=== PATIENT | female | born 1990 | race Caucasian/White ===

== ENCOUNTER 2017-10-02 14:03 | Emergency (ER) | payer OTHER ==
[2017-10-02] MEDS ORDERED: NS 0.9% 1000 ML* 1,000 ML IV ONE (15:15)
[2017-10-02 15:39] LABS: ABS Basophils 0 10^3/ul (0-0.2); ABS Eosinophils 0 10^3/ul (0-0.6); ABS Lymphocytes 1.2 10^3/ul (1.0-4.8); ABS Monocytes 0.3 10^3/ul (0-0.8); ABS Neutrophils 4.4 10^3/ul (1.5-7.7); ABS Nucleated RBC 0 10^3/ul; Eosinophil % 0.2 % (0-6); Hematocrit 40 % (35-47); Hemoglobin 13.5 g/dl (12.0-16.0); Lymphocyte % 20.9 % (25-47); Mean Corpuscular HGB Conc 34 g/dl (31-36); Mean Corpuscular Hemoglobin 30 pg (27-31); Mean Corpuscular Volume 89 fL (80-97); Mean Platelet Volume 7.1 um3 (7.4-10.4); Nucleated Red Blood Cells % 0.2; Platelet Count 305 10^3/ul (150-450); Red Blood Count 4.49 10^6/ul (4.00-5.40); Red Cell Distribution Width 14 % (10.5-15)
[2017-10-02 15:41] LABS: Urine Appearance Clear; Urine Blood Negative (Negative); Urine Color Straw; Urine Ketones Negative (Negative); Urine Protein Negative (Negative); Urine Specific Gravity 1.003 (1.010-1.030); Urine Urobilinogen Negative (Negative)
--- NOTE | 2017-10-02 16:11 | ED ---
Abdominal Pain/Female - HPI Summary HPI Summary: Patient presents with right upper quadrant pain since Wednesday of this week. She has noticed this pain after eating or drinking fatty foods but has not had pain when eating nonfatty foods. She denies nausea, vomiting, diarrhea. Admits to a history of "indigestion" with eating certain foods and sometimes feels that she can't lay down right after she eats she feels she may vomit. She 's taken Tums in the past with relief. No previous history of gallbladder dysfunction. She went to [address] [place] [id number] earlier this week and had liver enzymes assessed per patient these were normal. She was told if her pain worsens to follow up the emergency department which is why she is here today. She reports she developed pain shortly after eating chocolate next at a movie theater. Currently her pain is 1-2 out of 10 and she denies nausea. No trauma to the area. Has not tried anything for pain prior to arrival (i.e. Tums). Gets tension CALLAWAY's a couple of times a month for which she treats with ibuprofen. Doesn't eat breakfast and admits to drinking coffee, soda and ETOH occasionally. Denies smoking. Denies dysuria, urinary urgency, urinary frequency, hematuria, vaginal discharge , vaginal urination. Last was her period one month ago. Cycles are regular and she does not suspect she is . - History of Current Complaint Chief Complaint: EDAbdPain Stated Complaint: ABD PAIN Time Seen by Provider: 10/02/17 15:20 Hx Obtained From: Patient, Family/Blind Teacher - Sister, father Pain Intensity: 3 Allergies/Adverse Reactions: Allergies Allergy/AdvReac Type Severity Reaction Status Date / Time almond Allergy Swelling Verified 10/02/17 14:10 Of Face,Lips,& Throat Echinacea Allergy Swelling Verified 10/02/17 14:10 Of Face,Lips,& Throat Home Medications: Home Medications Ibuprofen 200 mg PO Q6H 10/02/17 [History Confirmed 10/02/17] PMH/Surg Hx/FS Hx/Imm Hx Previously Healthy: Yes Endocrine/Hematology History: Denies: Hx Diabetes, Hx Thyroid Disease Cardiovascular History: Denies: Hx Hypertension Respiratory History: Denies: Hx Asthma, Hx Chronic Obstructive Pulmonary Disease (COPD) GI History: Reports: Hx Gastroesophageal Reflux Disease - self reported "indigestion" intermittently Denies: Hx Crohn's Disease, Hx Diverticulosis, Hx Gall Bladder Disease, Hx Gastrointestinal Bleed, Hx Ulcer History: Denies: Hx Kidney Infection, Hx Kidney Stones, Other Problems/Disorders Psychiatric History: Reports: Hx Anxiety - self reported Infectious Disease History: No Infectious Disease History: Denies: Hx Hepatitis, Hx Human Immunodeficiency Virus (HIV), Traveled Outside the [place] in Last 30 Days - Family History Known Family History: Positive: Other - GERD - Social History Lives: With Family Alcohol Use: None Hx Substance Use: No Substance Use Type: Reports: None Hx Tobacco Use: No Smoking Status (MU): Never Smoked Tobacco Review of Systems Constitutional: Negative Negative: Fever, Chills, Fatigue Eyes: Negative ENT: Negative Negative: Sore Throat Cardiovascular: Negative Negative: Chest Pain Respiratory: Negative Negative: Shortness Of Breath, Cough Positive: Abdominal Pain. Negative: Vomiting, Diarrhea, Nausea Genitourinary: Negative Musculoskeletal: Negative Skin: Negative Neurological: Negative Psychological: Normal All Other Systems Reviewed And Are Negative: Yes Physical Exam Triage Information Reviewed: Yes Vital Signs On Initial Exam: Initial Vitals Temp Pulse Resp BP Pulse Ox 99.0 F 94 16 122/73 96 10/02/17 14:06 10/02/17 14:06 10/02/17 14:06 10/02/17 14:06 10/02/17 14:06 Vital Signs Reviewed: Yes Appearance: Positive: Well-Appearing, No Pain Distress - appears concerned/ anxious, Well-Nourished Skin: Positive: Warm, Skin Color Reflects Adequate Perfusion, Dry Head/Face: Positive: Normal Head/Face Inspection Eyes: Positive: Normal, EOMI, Conjunctiva Clear - anicteric sclera ENT: Positive: Normal ENT inspection, Hearing grossly normal, Pharynx normal - mucosa moist Neck: Positive: Supple, Nontender, No Lymphadenopathy Respiratory/Lung Sounds: Positive: Clear to Auscultation, Breath Sounds Present. Negative: Rales, Rhonchi, Wheezes Cardiovascular: Positive: Normal, RRR, S1, S2 Abdomen Description: Positive: No Organomegaly, Soft, Other: - + Tipton's sign. Negative: CVA Tenderness (R), CVA Tenderness (L), Distended, Guarding Bowel Sounds: Positive: Present Pelvic Exam: Positive: Other - deferred - no lower ab/pelvic tenderness Musculoskeletal: Positive: Normal, Strength/ROM Intact Neurological: Positive: Normal, Sensory/Motor Intact, Alert, Oriented to Person Place, Time, CN Intact II-III Psychiatric: Positive: Normal - concerned but calm, polite and cooperative Diagnostics - Vital Signs Vital Signs Temp Pulse Resp BP Pulse Ox 10/02/17 15:38 78 112/79 99 10/02/17 15:37 77 100 10/02/17 14:06 99.0 F 94 16 122/73 96 - Laboratory Lab Results: Lab Results 10/02/17 10/02/17 10/02/17 Range/Units 15:32 15:32 15:32 WBC 6.0 (3.5-10.8) 10^3/ul RBC 4.49 (4.00-5.40) 10^6/ul Hgb 13.5 (12.0-16.0) g/dl Hct 40 (35-47) % MCV 89 (80-97) fL MCH 30 (27-31) pg MCHC 34 (31-36) g/dl RDW 14 (10.5-15) % Plt Count 305 (150-450) 10^3/ul MPV 7.1 L (7.4-10.4) um3 Neut % (Auto) 73.7 (38-83) % Lymph % (Auto) 20.9 L (25-47) % [place] % (Auto) 5.0 (0-7) % Eos % (Auto) 0.2 (0-6) % Baso % (Auto) 0.2 (0-2) % Absolute Neuts (auto) 4.4 (1.5-7.7) 10^3/ul Absolute Lymphs (auto) 1.2 (1.0-4.8) 10^3/ul Absolute Monos (auto) 0.3 (0-0.8) 10^3/ul Absolute Eos (auto) 0 (0-0.6) 10^3/ul Absolute Basos (auto) 0 (0-0.2) 10^3/ul Absolute Nucleated RBC 0 10^3/ul Nucleated RBC % 0.2 Sodium 138 (135-145) mmol/L Potassium 3.6 (3.5-5.0) mmol/L Chloride 104 (101-111) mmol/L Carbon Dioxide 27 (22-32) mmol/L Anion Gap 7 (2-11) mmol/L BUN 8 (6-24) mg/dL Creatinine 0.66 (0.51-0.95) mg/dL Est GFR ( Amer) 133.1 (>60) Est GFR (Non-Af Amer) 110.0 (>60) BUN/Creatinine Ratio 12.1 (8-20) Glucose 100 (70-100) mg/dL Lactic Acid (0.5-2.0) mmol/L Calcium 9.3 (8.6-10.3) mg/dL Total Bilirubin 0.40 (0.2-1.0) mg/dL AST 15 (13-39) U/L ALT 11 (7-52) U/L Alkaline Phosphatase 59 (34-104) U/L C-Reactive Protein 1.10 (<8.01) mg/L Total Protein 7.6 (6.4-8.9) g/dL Albumin 4.6 (3.2-5.2) g/dL Globulin 3.0 (2-4) g/dL Albumin/Globulin Ratio 1.5 (1-3) Lipase 47 (11.0-82.0) U/L Beta HCG, Quant Pending Urine Color Straw Urine Appearance Clear Urine pH 7.0 (5-9) Ur Specific [place] 1.003 L (1.010-1.030) Urine Protein Negative (Negative) Urine Ketones Negative (Negative) Urine Blood Negative (Negative) Urine Nitrate Negative (Negative) Urine Bilirubin Negative (Negative) Urine Urobilinogen Negative (Negative) Ur Leukocyte Esterase Negative (Negative) Urine Glucose Negative (Negative) 10/02/17 Range/Units 15:32 WBC (3.5-10.8) 10^3/ul RBC (4.00-5.40) 10^6/ul Hgb (12.0-16.0) g/dl Hct (35-47) % MCV (80-97) fL MCH (27-31) pg MCHC (31-36) g/dl RDW (10.5-15) % Plt Count (150-450) 10^3/ul MPV (7.4-10.4) um3 Neut % (Auto) (38-83) % Lymph % (Auto) (25-47) % [place] % (Auto) (0-7) % Eos % (Auto) (0-6) % Baso % (Auto) (0-2) % Absolute Neuts (auto) (1.5-7.7) 10^3/ul Absolute Lymphs (auto) (1.0-4.8) 10^3/ul Absolute Monos (auto) (0-0.8) 10^3/ul Absolute Eos (auto) (0-0.6) 10^3/ul Absolute Basos (auto) (0-0.2) 10^3/ul Absolute Nucleated RBC 10^3/ul Nucleated RBC % Sodium (135-145) mmol/L Potassium (3.5-5.0) mmol/L Chloride (101-111) mmol/L Carbon Dioxide (22-32) mmol/L Anion Gap (2-11) mmol/L BUN (6-24) mg/dL Creatinine (0.51-0.95) mg/dL Est GFR ( Amer) (>60) Est GFR (Non-Af Amer) (>60) BUN/Creatinine Ratio (8-20) Glucose (70-100) mg/dL Lactic Acid 1.4 (0.5-2.0) mmol/L Calcium (8.6-10.3) mg/dL Total Bilirubin (0.2-1.0) mg/dL AST (13-39) U/L ALT (7-52) U/L Alkaline Phosphatase (34-104) U/L C-Reactive Protein (<8.01) mg/L Total Protein (6.4-8.9) g/dL Albumin (3.2-5.2) g/dL Globulin (2-4) g/dL Albumin/Globulin Ratio (1-3) Lipase (11.0-82.0) U/L Beta HCG, Quant Urine Color Urine Appearance Urine pH (5-9) Ur Specific [place] (1.010-1.030) Urine Protein (Negative) Urine Ketones (Negative) Urine Blood (Negative) Urine Nitrate (Negative) Urine Bilirubin (Negative) Urine Urobilinogen (Negative) Ur Leukocyte Esterase (Negative) Urine Glucose (Negative) Result Diagrams: 10/02/17 15:32 10/02/17 15:32 Lab Statement: Any lab studies that have been ordered have been reviewed, and results considered in the medical decision making process. Re-Evaluation - Re-Evaluation First Eval Change: Unchanged - pt jennyfer intravaginally or not ins at a pain - pretty comfortablei Abdominal Pain Fem Course/Dx - Course Course Of Treatment: Patient presents with right upper quadrant pain. This is suspected to be gallbladder however labs and ultrasound are normal. Discussed the possibility that this may be a gallbladder dysfunction and recommended a HIDA CCK outpatient through her PCP. She reports she has an appointment with her PCP on October 05. Advised to avoid fatty foods in the meantime. She also reports a history of "heartburn". The patient education about GERD as well as a GI cocktail upon discharge. Explained that if she feels better with GI cocktail than the symptoms are most likely GERD, not gallbladder. Encouraged to relay results and future symptoms to her PCP appointment for best care and reassessment. Review danger signs and symptoms with patient and her family when to return the emergency department. Everyone agrees with plan. - Diagnoses Provider Diagnoses: GERD (gastroesophageal reflux disease), Biliary colic symptom Discharge - Sign-Out/Discharge Documenting (check all that apply): Discharge/Admit/Transfer - Discharge Plan Condition: Stable Disposition: HOME Patient Education Materials: Gastroesophageal Reflux Disease (ED), Biliary Colic (ED) Referrals: Erinn El MD [Primary Care Provider] - Additional Instructions: The definitive cause of your abdominal pain was not identified today however it is suspected that this could be a gallbladder dysfunction. Is important that you follow-up with her PCP. Since you may have a gallbladder dysfunction, is important that you avoid fatty foods. You may stay well nourished with low fat foods, complex carbohydrates as well as hydrated with liquids. Additionally, you reported symptoms of heartburn. Educational information has been provided for you here. If your right upper quadrant symptoms improved with the GI cocktail you received here today, your pain may not be gallbladder pain but rather heartburn pain. Discuss with your PCP at follow-up on October 05. If your pain did not improve, you may benefit from a HIDA CCK, a test to better identify your gallbladder function. *If in the meantime you develop fever, vomiting, diarrhea, bloody stools, worsening of abdominal pain, heavy vaginal bleeding, chest pain, shortness of breath, return to the emergency department. - Billing Disposition and Condition Condition: STABLE Disposition: Home
--- NOTE | 2017-10-02 17:10 | RAD ---
INDICATION: Right upper quadrant pain. COMPARISON: There are no prior studies available for comparison. TECHNIQUE: Multiple real-time images of the right upper quadrant were obtained. FINDINGS: The gallbladder appear normal. No gallbladder wall thickening or pericholecystic fluid is present. No intra or extrahepatic ductal distention is present. The common bile duct measured 0.2 cm in diameter. The liver is normal in size without significant focal abnormality. The pancreas is partially obscured by overlying bowel gas. The right kidney is normal in size without evidence for hydronephrosis. IMPRESSION: NEGATIVE EXAM.
[2017-10-02] MEDS ORDERED: Al Hydrox/Mg Hydrox/Simet LIQ* 30 ML UDC PO ONE (17:51)
[2017-10-02] MEDS ORDERED: Lidocaine 2% VISCOUS* 15 ML UDC PO ONE (17:51)
[2017-10-02 18:28] VITALS: BP 101/79
== END 2017-10-02 18:27 | disposition home or self-care (01) ==
LOC: ED 14:03
DX: K21.9 Gastro-esophageal reflux disease without esophagitis (principal); K80.50 Calculus of bile duct without cholangitis or cholecystitis without obstruction; R10.11 Right upper quadrant pain
CPT/HCPCS: 36415; 76705; 80053; 81003; 83605; 83690; 84702; 85025; 86140; 96360; 99283; A9270-GY